=== PATIENT | male | born 1985 | race Caucasian/White ===

== ENCOUNTER 2021-11-15 00:44 | Observation (INO) ==
[2021-11-15] MEDS ORDERED: Ondansetron 4 MG/2 ML VIAL IVP ONE (01:07)
[2021-11-15] MEDS ORDERED: methocarbamoL 500 MG TABLET PO ONE (01:07)
[2021-11-15] MEDS ORDERED: 0.9 % Sodium Chloride 1,000 ML IVC ONE (01:31)
[2021-11-15] MEDS ORDERED: Apixaban 5 MG TABLET PO ONE (01:32)
[2021-11-15] MEDS ORDERED: diazePAM 10 MG/2 ML SYRINGE IVP ONE (01:33)
[2021-11-15 01:59] LABS: Basophils % 0.3 %; Eosinophils % 0.5 %; Hematocrit 42.3 % (37.5-50.1); Hemoglobin 13.7 g/dL (12.9-16.9); Immature Granulocytes % 0.3 % (0-4); Lymphocytes # 1.3 K/mcL (0.6-4.6); Lymphocytes % 15.2 %; Mean Corpuscular HGB Conc 32.4 g/dL (31.6-35.5); Mean Corpuscular Hemoglobin 30.8 pg (28.0-33.3); Mean Corpuscular Volume 95.1 fL (83.0-100.0); Mean Platelet Volume 8.2 fL (9.4-12.4); Monocytes # 0.7 K/mcL (0.0-1.3); Monocytes % 7.5 %; Neutrophils # 6.7 K/mcL (1.6-8.9); Platelet Count 204 K/mcL (140-400); Red Blood Count 4.45 M/mcL (4.19-5.50); Red Cell Distribution Width 13.6 % (11.5-14.5); Segmented Neutrophils % 76.2 %; White Blood Count 8.8 K/mcL (4.3-11.1)
[2021-11-15 01:59] LABS: VBG HCO3 16 mEq/L (21-27); VBG PCO2 30 mmHg (41-51); VBG PH 7.33 pH Units (7.32-7.42); VBG PO2 81 mmHg (25-50)
[2021-11-15] MEDS: DilTIAZem 50 MG/50 ML IV.SOLN IVC SCH ×2 (02:06→06:00)
[2021-11-15 02:19] LABS: Acetaminophen < 10 mcg/mL (10-20); Alanine Aminotransferase 43 Units/L (7-52); Albumin 4.3 g/dL (3.5-5.7); Albumin/Globulin Ratio 1.7 (1.1-2.2); Alkaline Phosphatase 64 Units/L (34-104); Aspartate Amino Transferase 25 Units/L (13-39); BUN/Creatinine Ratio 24 (6-26); Bilirubin,Direct 0.1 mg/dL (0.0-0.2); Bilirubin,Indirect 0.3 mg/dL (0.0-1.0); Bilirubin,Total 0.4 mg/dL (0.3-1.0); Blood Urea Nitrogen 29 mg/dL (6-20); Calcium 9.1 mg/dL (8.6-10.3); Carbon Dioxide 23 mEq/L (23-29); Chloride 107 mEq/L (98-107); Creatine Kinase 187 Units/L (30-223); Ethanol < 10 mg/dL (Less than 10); Globulin 2.6 g/dL (2.4-3.5); Glucose 151 mg/dL (70-105); Magnesium 2.1 mg/dL (1.6-2.6); Osmolality,Calculated 297 (280-300); Potassium 4.1 mEq/L (3.5-5.1); Salicylate < 2.5 mg/dL (15.0-30.0); Sodium 139 mEq/L (136-145); Total Protein 6.9 g/dL (6.4-8.9); Troponin I 0.03 ng/mL (< 0.04); eGFR For African Americans > 60 (> 60); eGFR For Non-African Americans > 60 (> 60)
[2021-11-15 04:04] LABS: Bilirubin,Urine Negative (Negative); Blood,Urine Negative (Negative); Clarity,Urine Clear (Clear); Color,Urine Light-Yellow (Yellow); Glucose,Urine (UA) Normal (Normal); Ketones,Urine Negative (Negative); Leukocyte Esterase,Urine Negative (Negative); Nitrite,Urine Negative (Negative); PH,Urine 5.5 pH Units (5.0-8.0); Protein,Urine Trace mg/dL (Neg-Trace); Specific Gravity,Urine 1.029 (1.010-1.025); Urobilinogen,Urine Normal (Normal)
[2021-11-15 04:10] LABS: Amphetamine Screen,Urine Positive ng/mL (Cutoff=1000); Barbiturate Screen,Urine Negative ng/mL (Cutoff=200); Benzodiazepines Screen,Urine Negative ng/mL (Cutoff=200); Cannabinoid Screen,Urine Positive ng/mL (Cutoff = 50); Cocaine Screen,Urine Negative ng/mL (Cutoff= 300); Opiate Screen,Urine Negative ng/mL (Cutoff=300); Phencyclidine Screen,Urine Negative ng/mL (Cutoff=25)
[2021-11-15] MEDS ORDERED: Melatonin 3 MG TABLET PO PRN (04:54)
[2021-11-15] MEDS ORDERED: Naloxone 0.4 MG/ML INJ IVP PRN (04:54)
[2021-11-15] MEDS ORDERED: Acetaminophen 325 MG TABLET PO PRN (04:54)
[2021-11-15] MEDS ORDERED: Ondansetron 4 MG/2 ML VIAL IVP PRN (04:54)
[2021-11-15] MEDS ORDERED: Perflutren Lipid Microsphere 1.3 ML in 0.9 % Sodium Chloride 8.7 ML IVP PRN (04:57)
[2021-11-15] MEDS ORDERED: 0.9 % Sodium Chloride 1,000 ML IVC SCH (06:00)
[2021-11-15 07:47] VITALS: TEMP 97.7
[2021-11-15 08:56] VITALS: BP 131/71; O2SAT 96
[2021-11-15 09:29] LABS: Chol/HDL Ratio 4.1 (0-4.9)
[2021-11-15] MEDS ORDERED: DilTIAZem CD (24hr) 180 MG CAP.ER.24H PO SCH (09:30)
[2021-11-15 10:08] VITALS: PULSE 81
[2021-11-15 10:29] LABS: Hepatitis B Surface Antigen Nonreactive (Nonreactive)
[2021-11-15 10:59] LABS: Hepatitis B Core IgM Nonreactive (Nonreactive)
[2021-11-15 11:01] LABS: Hepatitis A Antibody IgM Nonreactive (Nonreactive)
[2021-11-15 12:50] LABS: Estimated Average Glucose 114 mg/dl; Hemoglobin A1C 5.6 %
[2021-11-15] MEDS ORDERED: Apixaban 5 MG TABLET PO SCH (13:00)
[2021-11-15 14:10] LABS: Hepatitis C Virus Antibody Reactive (Nonreactive)
== END 2021-11-15 11:05 | disposition home or self-care (01) ==
LOC: 2NNU 00:44 → EMEROOARM 00:44 → 2NNU 04:50
PROVIDERS: ADMIT Family Medicine; ATTEND Family Medicine

== ENCOUNTER 2022-04-07 11:22 | Observation (INO) ==
[2022-04-07] MEDS ORDERED: Iopamidol - 370 500 ML MLS IVP ONE (12:03)
[2022-04-07] MEDS: DilTIAZem 50 MG/50 ML IV.SOLN IVC SCH ×3 (12:20→22:52)
[2022-04-07 12:46] LABS: BUN/Creatinine Ratio 16 (6-26); Blood Urea Nitrogen 18 mg/dL (6-20); Calcium 10.7 mg/dL (8.6-10.3); Carbon Dioxide 22 mEq/L (23-29); Chloride 106 mEq/L (98-107); Glucose 111 mg/dL (70-105); Magnesium 1.9 mg/dL (1.6-2.6); Osmolality,Calculated 289 (280-300); Potassium 4.2 mEq/L (3.5-5.1); Sodium 138 mEq/L (136-145); Troponin I < 0.03 ng/mL (< 0.04)
[2022-04-07 13:18] LABS: Bilirubin,Urine Negative (Negative); Blood,Urine Negative (Negative); Clarity,Urine Clear (Clear); Color,Urine Yellow (Yellow); Glucose,Urine (UA) Normal (Normal); Hyaline Casts,Urine Few per lpf (None Seen); Ketones,Urine 20 mg/dL (Negative); Leukocyte Esterase,Urine Negative (Negative); Mucus,Urine Few per lpf (None-Few); Nitrite,Urine Negative (Negative); Protein,Urine 30 mg/dL (Neg-Trace); RBC,Urine 0-3 per hpf (0-3); Specific Gravity,Urine 1.021 (1.010-1.025); Urobilinogen,Urine Normal (Normal); WBC,Urine 0-3 per hpf (0-3)
[2022-04-07 13:31] LABS: Basophils # 0.1 K/mcL (0.0-0.2); Basophils % 0.6 %; Eosinophils # 0.1 K/mcL (0.0-0.6); Eosinophils % 0.7 %; Hematocrit 50.5 % (37.5-50.1); Hemoglobin 17.6 g/dL (12.9-16.9); Immature Granulocytes % 0.2 % (0-4); Lymphocytes # 1.8 K/mcL (0.6-4.6); Lymphocytes % 21.7 %; Mean Corpuscular HGB Conc 34.9 g/dL (31.6-35.5); Mean Corpuscular Hemoglobin 31.2 pg (28.0-33.3); Mean Corpuscular Volume 89.4 fL (83.0-100.0); Mean Platelet Volume 8.4 fL (9.4-12.4); Monocytes # 0.8 K/mcL (0.0-1.3); Neutrophils # 5.5 K/mcL (1.6-8.9); Platelet Count 279 K/mcL (140-400); Red Blood Count 5.65 M/mcL (4.19-5.50); Red Cell Distribution Width 12.6 % (11.5-14.5); Segmented Neutrophils % 66.8 %; White Blood Count 8.2 K/mcL (4.3-11.1)
[2022-04-07 13:48] LABS: Alanine Aminotransferase 36 Units/L (7-52); Albumin 5.2 g/dL (3.5-5.7); Albumin/Globulin Ratio 1.8 (1.1-2.2); Alkaline Phosphatase 71 Units/L (34-104); Aspartate Amino Transferase 26 Units/L (13-39); Bilirubin,Direct 0.1 mg/dL (0.0-0.2); Bilirubin,Indirect 0.8 mg/dL (0.0-1.0); Bilirubin,Total 0.9 mg/dL (0.3-1.0); Globulin 2.9 g/dL (2.4-3.5); Lipase 8 Units/L (11-82); Total Protein 8.1 g/dL (6.4-8.9)
[2022-04-07] MEDS ORDERED: Melatonin 3 MG TABLET PO PRN (16:24)
[2022-04-07] MEDS ORDERED: Ondansetron 4 MG/2 ML VIAL IVP PRN (16:24)
[2022-04-07] MEDS ORDERED: Naloxone 0.4 MG/ML INJ IVP PRN (16:24)
[2022-04-07] MEDS: predniSONE 20 MG TABLET PO SCH (17:39)
[2022-04-07] MEDS ORDERED: Ipratropium/Albuterol Neb 3 ML IH PRN (18:52)
[2022-04-07 19:09] LABS: Prothrombin Time 11.5 Seconds (9.4-12.1)
[2022-04-07] MEDS: Apixaban 5 MG TABLET PO SCH (19:57)
[2022-04-07] MEDS ORDERED: Acetaminophen 325 MG TABLET PO PRN (22:31)
[2022-04-07 23:52] LABS: Amphetamine Screen,Urine Negative ng/mL (Cutoff=1000); Barbiturate Screen,Urine Negative ng/mL (Cutoff=200); Benzodiazepines Screen,Urine Negative ng/mL (Cutoff=200); Cannabinoid Screen,Urine Positive ng/mL (Cutoff = 50); Cocaine Screen,Urine Negative ng/mL (Cutoff= 300); Opiate Screen,Urine Negative ng/mL (Cutoff=300); Phencyclidine Screen,Urine Negative ng/mL (Cutoff=25)
[2022-04-08 07:58] VITALS: O2SAT 96
[2022-04-08] MEDS ORDERED: DilTIAZem CD (24hr) 180 MG CAP.ER.24H PO SCH (09:00)
[2022-04-08] MEDS: predniSONE 20 MG TABLET PO SCH (09:31)
[2022-04-08] MEDS: Apixaban 5 MG TABLET PO SCH (09:31)
[2022-04-08] MEDS ORDERED: Ondansetron ODT 4 MG TAB.RAPDIS SL PRN (09:43)
[2022-04-08 10:57] VITALS: BP 148/84
[2022-04-08 11:19] VITALS: PULSE 79; TEMP 98.1
== END 2022-04-08 13:00 | disposition home or self-care (01) ==
LOC: 2ANU 11:22 → EMEROOARM 11:22 → SUATTDRO 15:24 → 2ANU 16:32
PROVIDERS: ADMIT Internal Medicine; ATTEND Internal Medicine